=== PATIENT | female | born 1995 | race Caucasian/White ===

== ENCOUNTER 2019-06-08 16:17 | Emergency (ER) | payer BC, MEDICAID ==
--- NOTE | 2019-06-08 16:30 | EDM.PDOC ---
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 This developed yesterday and into today it is a little spectroscopist than a normal period for her. She denies fevers or chills. She has minimal cramping and discomfort with this. She does not have a history of PID or other infections. She is not having any nausea vomiting diarrhea or constipation. Denies burning or frequency with urination. She is established with Dr. Hurtado here in [facility]. - Related Data Allergies Allergy/AdvReac Type Severity Reaction Status Date / Time No Known Allergies Allergy Verified 06/08/19 16:24 Home Meds: Home Meds Pnv No.95/Ferrous Fum/Folic AC [ Vitamin Tablet] 1 tab PO DAILY [History] ED ROS GENERAL - Review of Systems Review Of Systems: See Below Constitutional: Reports: No Symptoms HEENT: Reports: No Symptoms Respiratory: Reports: No Symptoms Cardiovascular: Reports: No Symptoms Endocrine: Reports: No Symptoms GI/Abdominal: Reports: No Symptoms : Reports: No Symptoms Musculoskeletal: Reports: No Symptoms Skin: Reports: No Symptoms Neurological: Reports: No Symptoms ED EXAM - Physical Exam Exam: See Below Exam Limited By: No Limitations General Appearance: Alert, No Apparent Distress Head: Atraumatic, Normocephalic Neck: Normal Inspection, Supple, Non-Tender, Full Range of Motion Respiratory/Chest: No Respiratory Distress, Lungs Clear, Normal Breath Sounds Cardiovascular: Regular Rate, Rhythm, No Edema, No Murmur GI/Abdominal Exam: Normal Bowel Sounds, Soft, Other (Minimal suprapubic discomfort) (Female) Exam: Normal Bimanual Exam, Normal External Exam, Normal Speculum Exam, Vaginal Bleeding (Minimal had to use a large Q-tip to be able to see the blood against a white background. No tissue noted no clots noted) Back Exam: Normal Inspection. No: CVA Tenderness (L), CVA Tenderness (R) Extremities: Normal Inspection Course - Vital Signs Last Recorded V/S: Last Vital Signs Temp 36.4 C 06/08/19 16:26 Pulse 86 06/08/19 16:26 Resp BP 116/67 06/08/19 16:26 Pulse Ox 100 06/08/19 16:26 - Orders/Labs/Meds Orders: Active Orders 24 hr Category Date Time Status CULTURE URINE [RM] Stat Lab 06/08/19 16:42 Received RH IMMUNE GLOBULIN [BBK] Stat Lab 06/08/19 17:07 Results RHIG WORKUP, 1ST TRIMESTER [BBK] Stat Lab 06/08/19 17:07 Results TYPE AND SCREEN [BBK] Stat Lab 06/08/19 17:07 Results Labs: Laboratory Tests 06/08/19 06/08/19 06/08/19 Range/Units 16:42 17:07 17:07 WBC 9.91 (3.98-10.04) K/mm3 RBC 4.66 (3.98-5.22) M/mm3 Hgb 13.5 (11.2-15.7) gm/dl Hct 40.8 (34.1-44.9) % MCV 87.6 (79.4-94.8) fl MCH 29.0 (25.6-32.2) pg MCHC 33.1 (32.2-35.5) g/dl RDW Std Deviation 39.6 (36.4-46.3) fL Plt Count 314 (182-369) K/mm3 MPV 9.9 (9.4-12.3) fl Neut % (Auto) 69.6 (34.0-71.1) % Lymph % (Auto) 22.1 (19.3-51.7) % [place] % (Auto) 6.2 (4.7-12.5) % Eos % (Auto) 1.5 (0.7-5.8) Baso % (Auto) 0.5 (0.1-1.2) % Neut # (Auto) 6.90 H (1.56-6.13) K/mm3 Lymph # (Auto) 2.19 (1.18-3.74) K/mm3 [place] # (Auto) 0.61 H (0.24-0.36) K/mm3 Eos # (Auto) 0.15 (0.04-0.36) K/mm3 Baso # (Auto) 0.05 (0.01-0.08) K/mm3 HCG, Quant 57102.0 mIU/mL Urine Color Yellow (Yellow) Urine Appearance Clear (Clear) Urine pH 6.0 (5.0-8.0) Ur Specific [place] 1.015 (1.005-1.030) Urine Protein Negative (Negative) Urine Glucose (UA) Negative (Negative) Urine Ketones Negative (Negative) Urine Occult Blood 2+ H (Negative) Urine Nitrite Negative (Negative) Urine Bilirubin Negative (Negative) Urine Urobilinogen 0.2 (0.2-1.0) Ur Leukocyte Esterase 1+ H (Negative) Urine RBC 5-10 H (0-5) /hpf Urine WBC 0-5 (0-5) /hpf Ur Squamous Epith Cells 5-10 H (0-5) /hpf Urine Bacteria Few (FEW) /hpf Urine Mucus Not seen (FEW) /hpf Blood Type Gel Antibody Screen Rhogam Indicated 06/08/19 Range/Units 17:07 WBC (3.98-10.04) K/mm3 RBC (3.98-5.22) M/mm3 Hgb (11.2-15.7) gm/dl Hct (34.1-44.9) % MCV (79.4-94.8) fl MCH (25.6-32.2) pg MCHC (32.2-35.5) g/dl RDW Std Deviation (36.4-46.3) fL Plt Count (182-369) K/mm3 MPV (9.4-12.3) fl Neut % (Auto) (34.0-71.1) % Lymph % (Auto) (19.3-51.7) % [place] % (Auto) (4.7-12.5) % Eos % (Auto) (0.7-5.8) Baso % (Auto) (0.1-1.2) % Neut # (Auto) (1.56-6.13) K/mm3 Lymph # (Auto) (1.18-3.74) K/mm3 [place] # (Auto) (0.24-0.36) K/mm3 Eos # (Auto) (0.04-0.36) K/mm3 Baso # (Auto) (0.01-0.08) K/mm3 HCG, Quant mIU/mL Urine Color (Yellow) Urine Appearance (Clear) Urine pH (5.0-8.0) Ur Specific [place] (1.005-1.030) Urine Protein (Negative) Urine Glucose (UA) (Negative) Urine Ketones (Negative) Urine Occult Blood (Negative) Urine Nitrite (Negative) Urine Bilirubin (Negative) Urine Urobilinogen (0.2-1.0) Ur Leukocyte Esterase (Negative) Urine RBC (0-5) /hpf Urine WBC (0-5) /hpf Ur Squamous Epith Cells (0-5) /hpf Urine Bacteria (FEW) /hpf Urine Mucus (FEW) /hpf Blood Type O NEGATIVE Gel Antibody Screen Negative Rhogam Indicated Yes - Re-Assessments/Exams Free Text/Narrative Re-Assessment/Exam: 06/08/19 18:45 Blood type is O- she will receive RhoGam. Case discussed with Dr. Villarreal Departure - Departure Time of Disposition: 18:13 Disposition: Home, Self-Care 01 Clinical Impression: Threatened - Discharge Information Referrals: Tati Ling MD [Primary Care Provider] - Forms: ED Department Discharge, ED Return to Work/School Form Additional Instructions: Return to the emergency room with any worsening symptoms or concerns questions or problems. Follow-up with Dr. Hurtado on Monday you will need a repeat quantitative hCG. Call them first thing Monday morning. Mostly bedrest between now and the time you follow-up with Dr. Hurtado. No lifting, nothing in the vagina. Sepsis Event Note - Focused Exam Vital Signs: Vital Signs Temp Pulse BP Pulse Ox 06/08/19 16:26 36.4 C 86 116/67 100 Date Exam was Performed: 06/08/19 Time Exam was Performed: 18:44 - My Orders Last 24 Hours: My Active Orders 06/08/19 16:42 CULTURE URINE [RM] Stat 06/08/19 17:07 RH IMMUNE GLOBULIN [BBK] Stat RHIG WORKUP, 1ST TRIMESTER [BBK] Stat TYPE AND SCREEN [BBK] Stat - Assessment/Plan Last 24 Hours: My Active Orders 06/08/19 16:42 CULTURE URINE [RM] Stat 06/08/19 17:07 RH IMMUNE GLOBULIN [BBK] Stat RHIG WORKUP, 1ST TRIMESTER [BBK] Stat TYPE AND SCREEN [BBK] Stat
== END 2019-06-08 18:57 | disposition home or self-care (01) ==
LOC: JD.ED 16:17
DX: O20.0 Threatened abortion (principal); Z3A.08 8 weeks gestation of pregnancy
CPT/HCPCS: 36415; 81001; 84702; 85025; 86850; 86900; 86901; 87086; 87088; 87186; 99284; J2790; 99282

== ENCOUNTER 2020-03-28 10:35 | Emergency (ER) | payer OTHER, BC ==
[2020-03-28] MEDS ORDERED: Cyclobenzaprine 10 MG Tab PO ONE (11:25)
--- NOTE | 2020-03-28 12:02 | EDM.PDOC ---
ED HPI GENERAL MEDICAL PROBLEM - General Chief Complaint: Back Pain or Injury Stated Complaint: BACK INJURY Time Seen by Provider: 03/28/20 10:45 Source of Information: Reports: Patient History Limitations: Reports: No Limitations - History of Present Illness INITIAL COMMENTS - FREE TEXT/NARRATIVE: The patient presents with low back pain. She was at work this morning and lifte d a crate of bananas and hurt her low back. The pain is more in the middle but she has some to the right side of her back. She has no numbness or weakness. She has no bowel or bladder problems. She has no history of back pain. She has no fever, chills, cough, congestion, runny nose, chest pain, abdominal pain, nausea or vomiting. 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, Cold Therapy Lower Back Pain Score (Numeric/FACES): 4 - Related Data Allergies Allergy/AdvReac Type Severity Reaction Status Date / Time No Known Allergies Allergy Verified 03/28/20 10:47 Home Meds: Home Meds Pnv No.95/Ferrous Fum/Folic AC [ Vitamin Tablet] 1 tab PO DAILY 06/08/19 [History] Cyclobenzaprine [Flexeril] 10 mg PO TID PRN #20 tab 03/28/20 [Rx] Hydrocodone/Acetaminophen [Hydrocodone-Acetamin 5-325 mg] 1 - 2 each PO Q6HR PRN #10 tablet 03/28/20 [Rx] Past Medical History - Past Health History Medical/Surgical History: Denies Medical/Surgical History Genitourinary History: Reports: Other (See Below) Other Genitourinary History: Mirena IUD - Past Surgical History Female Surgical History: Reports: D&C Social & Family History - Tobacco Use Tobacco Use Status *Q: Current Some Day Tobacco User Years of Tobacco use: 4 Packs/Tins Daily: 0 - Caffeine Use Caffeine Use: Reports: None - Recreational Drug Use Recreational Drug Use: No ED ROS GENERAL - Review of Systems Review Of Systems: See Below Constitutional: Reports: No Symptoms HEENT: Reports: No Symptoms Respiratory: Reports: No Symptoms Cardiovascular: Reports: No Symptoms Endocrine: Reports: No Symptoms GI/Abdominal: Reports: No Symptoms : Reports: No Symptoms Musculoskeletal: Reports: Back Pain (low) ED EXAM,LOWER BACK PAIN/INJURY - Physical Exam Exam: See Below Exam Limited By: No Limitations General Appearance: Alert, No Apparent Distress Ears: Normal External Exam Nose: Normal Inspection Head: Atraumatic, Normocephalic Neck: Normal Inspection Respiratory/Chest: No Respiratory Distress, Lungs Clear, Normal Breath Sounds Cardiovascular: Regular Rate, Rhythm, No Edema, No Murmur GI/Abdominal: Soft, Non-Tender, No Organomegaly, No Mass Back Exam: Paraspinal Tenderness (mild to the mid and right low back) Neurological: Alert, No Motor/Sensory Deficits, Oriented x 3 Course - Vital Signs Last Recorded V/S: Last Vital Signs Temp 96.9 F 03/28/20 10:40 Pulse 79 03/28/20 10:40 Resp 16 03/28/20 10:40 BP 115/74 03/28/20 10:40 Pulse Ox 98 03/28/20 10:40 - Orders/Labs/Meds Orders: Active Orders 24 hr Category Date Time Status Lumbar Spine 2 or 3V [CR] Stat Exams 03/28/20 11:25 Taken Meds: Medications Discontinued Medications Generic Name Dose Route Start Last Admin Trade Name Errol PRN Reason Stop Dose Admin Cyclobenzaprine HCl 10 mg 03/28/20 11:25 03/28/20 11:37 Flexeril PO 03/28/20 11:26 10 mg ONETIME ONE Administration - Re-Assessments/Exams Free Text/Narrative Re-Assessment/Exam: 03/28/20 12:01 I ordered flexeril 10mg by mouth and an x-ray. The x-ray looks good. I will get her on some flexeril and antiinflammatories and something more for pain and refer to PT. Departure - Departure Time of Disposition: 12:15 Disposition: Home, Self-Care 01 Condition: Good Clinical Impression: Low back pain Qualifiers: Chronicity: acute Back pain laterality: bilateral Sciatica presence: without sciatica Qualified Code(s): M54.5 - Low back pain - Discharge Information *PRESCRIPTION DRUG MONITORING PROGRAM REVIEWED*: Not Applicable *COPY OF PRESCRIPTION DRUG MONITORING REPORT IN PATIENT AASHISH: Not Applicable Prescriptions: Cyclobenzaprine [Flexeril] 10 mg PO TID PRN #20 tab PRN Reason: Pain Hydrocodone/Acetaminophen [Hydrocodone-Acetamin 5-325 mg] 1 - 2 each PO Q6HR PRN #10 tablet PRN Reason: Pain Referrals: PCP,None [Primary Care Provider] - Kathleen De La Rosa MD [Physician] - 1 Week Forms: ED Department Discharge Additional Instructions: Ice your back for 15 minutes 3 times per day for 3 days. Take motrin or aleve for the pain. Take the flexeril every 8 hours as needed for pain. If these medications do not help, try the hydrocodone. Follow up with Dr De La Rosa within a week and follow up with physical therapy. Sepsis Event Note (ED) - Evaluation Sepsis Screening Result: No Definite Risk - Focused Exam Vital Signs: Vital Signs Temp Pulse Resp BP Pulse Ox 03/28/20 10:40 96.9 F 79 16 115/74 98 - My Orders Last 24 Hours: My Active Orders 03/28/20 11:25 Lumbar Spine 2 or 3V [CR] Stat - Assessment/Plan Last 24 Hours: My Active Orders 03/28/20 11:25 Lumbar Spine 2 or 3V [CR] Stat
--- NOTE | 2020-03-29 08:48 | CR ---
Lumbar spine: AP, lateral and coned-down lateral centered to the lumbosacral junction were obtained. Comparison: No previous study. Vertebral body heights and disc spaces are maintained. Pedicles are intact. Visualized transverse and spinous processes are intact. IUD is noted within the pelvis. Sacroiliac joints appear normal. Impression: 1. IUD. 2. 3 view lumbar spine study is otherwise unremarkable. Diagnostic code #1
== END 2020-03-28 12:35 | disposition home or self-care (01) ==
LOC: JD.ED 10:35
DX: M54.5 Low back pain (principal); Z72.0 Tobacco use
CPT/HCPCS: 72100; 99283; A9270

== ENCOUNTER 2021-10-28 00:18 | Inpatient (IN) | payer BC ==
[2021-10-28] MEDS ORDERED: Ondansetron 4 MG/2 ML SDV IVPUSH PRN (01:09)
[2021-10-28] MEDS ORDERED: Sodium Chloride 0.9% 10 ML Syringe FLUSH PRN (01:09)
[2021-10-28] MEDS ORDERED: Nalbuphine HCl 10 MG/ 1ML Amp IVPUSH PRN (01:09)
[2021-10-28] MEDS ORDERED: Calcium Carbonate 500 MG Tab.Chew PO PRN (01:09)
[2021-10-28] MEDS ORDERED: Oxytocin/Lactated Ringers 10 UNIT/1,000 ML BAG IV SCH ×2 (01:15)
[2021-10-28] MEDS ORDERED: diphenhydrAMINE 50 MG/ML SDV IVPUSH PRN (01:23)
[2021-10-28] MEDS ORDERED: Bupivacaine/fentaNYL/NS 100 ML Bag EPIDUR PRN (01:23)
[2021-10-28] MEDS ORDERED: ePHEDrine 50 MG/ML SDV IVPUSH PRN (01:23)
[2021-10-28] MEDS ORDERED: fentaNYL 100 MCG/2 ML SDV EPIDUR PRN (01:23)
[2021-10-28] MEDS: Lactated Ringers 1,000 ML IV SCH ×3 (01:32→06:28)
[2021-10-28] MEDS ORDERED: Bupivacaine 0.25% 10 ML SDV ONE (08:00)
[2021-10-28] MEDS ORDERED: Ibuprofen 600 MG Tab PO PRN (11:28)
[2021-10-28] MEDS ORDERED: Benzocaine/Menthol 20%-0.5% Spray 78 GM Cannister TOP PRN (11:28)
[2021-10-28] MEDS ORDERED: Witch Hazel Medicated Pads 40/Jar TOP PRN (11:28)
== END 2021-10-30 11:10 | disposition home or self-care (01) | DRG 560 ==
LOC: JD.OBCHECK 00:18 → JD.OB 00:23 → JD.OBCHECK 01:08 → JD.OB 01:09 → OBSVTOIN 10:42 → JD.OB 15:32
PROVIDERS: ADMIT Obstetrics & Gynecology; ATTEND Obstetrics & Gynecology
PROC: 10E0XZZ Delivery of Products of Conception, External Approach (ICD-10-PCS; principal; 2021-10-28)
PROC: 10907ZC Drainage of Amniotic Fluid, Therapeutic from Products of Conception, Via Natural or Artificial Opening (ICD-10-PCS; 2021-10-28)
PROC: 3E0R3BZ Introduction of Anesthetic Agent into Spinal Canal, Percutaneous Approach (ICD-10-PCS; 2021-10-28)
PROC: 00HU33Z Insertion of Infusion Device into Spinal Canal, Percutaneous Approach (ICD-10-PCS; 2021-10-28)
DX: O70.1 Second degree perineal laceration during delivery (principal); Z3A.39 39 weeks gestation of pregnancy; Z37.0 Single live birth
CPT/HCPCS: 01967; 36415; 51702; 59025; 59409; 84112; 85025; 86592; 86850; 86900; 86901; J2590; J3010; J3490; J7120

== ENCOUNTER 2023-09-29 10:15 | Inpatient (IN) | payer BC ==
[~2023-09-29 10:15] MED LIST: Bupivacaine 0.25% 10 ML SDV ONE
[2023-09-29] MEDS ORDERED: Calcium Carbonate 500 MG Tab.Chew PO PRN (10:53)
[2023-09-29] MEDS ORDERED: Lidocaine 1% 50 ML MDV INJECT PRN (10:53)
[2023-09-29] MEDS ORDERED: Nalbuphine 10 MG/ML Syringe IVPUSH PRN (10:53)
[2023-09-29] MEDS ORDERED: Oxytocin/0.9 % Sodium Chloride 30 UNIT/500 ML BAG IV SCH (11:00)
[2023-09-29] MEDS: Lactated Ringers 1,000 ML IV SCH (11:02)
[2023-09-29] MEDS ORDERED: Nalbuphine 10 MG/1 ML Vial IVPUSH PRN (11:02)
[2023-09-29 11:22] LABS: BASOPHILS ABSOLUTE AUTO 0.1 K/mm3 (0.0-0.2); BASOPHILS PERCENT AUTO 0.5 % (0.0-1.0); EOSINOPHILS ABSOLUTE AUTO 0.1 K/mm3 (0.0-0.4); EOSINOPHILS PERCENT AUTO 0.6 % (0.0-6.0); HEMATOCRIT 36.9 % (37.0-47.0); HEMOGLOBIN 11.4 gm/dl (12.0-16.0); IMMATURE GRAN ABSOLUTE AUTO 0.03 K/mm3 (0.00-0.05); IMMATURE GRAN PERCENT AUTO 0.3 % (0.0-0.4); LYMPHOCYTES ABSOLUTE AUTO 1.7 K/mm3 (1.0-4.8); LYMPHOCYTES PERCENT AUTO 17.8 % (24.0-44.0); MEAN CORPUSCULAR HEMOGLOBIN 24.4 pg (28.0-32.0); MEAN CORPUSCULAR HGB CONC 30.9 g/dl (32.0-36.0); MEAN PLATELET VOLUME 10.7 fl (9.4-12.3); MONOCYTES ABSOLUTE AUTO 0.6 K/mm3 (0.0-0.8); MONOCYTES PERCENT AUTO 6.4 % (0.0-8.0); NEUTROPHILS PERCENT AUTO 74.4 % (41.0-71.0); PLATELET COUNT,PLT 303 K/mm3 (150-400); RED BLOOD CELL COUNT 4.67 M/mm3 (4.10-5.30); WHITE BLOOD CELL COUNT,WBC 9.39 K/mm3 (3.9-11.3)
[2023-09-29] MEDS ORDERED: diphenhydrAMINE 50 MG/ML SDV IVPUSH PRN (11:25)
[2023-09-29] MEDS ORDERED: ePHEDrine 50 MG/ML SDV IVPUSH PRN (11:25)
[2023-09-29] MEDS: fentaNYL 100 MCG/2 ML SDV EPIDUR PRN (11:42)
[2023-09-29] MEDS: Bupivacaine/fentaNYL/NS 100 ML Bag EPIDUR PRN (11:43)
[2023-09-29] MEDS: Oxytocin/0.9 % Sodium Chloride 30 UNIT/500 ML BAG IV SCH (15:04)
[2023-09-29] MEDS ORDERED: Docusate Sodium 100 MG Cap PO PRN (16:57)
[2023-09-29] MEDS ORDERED: Acetaminophen 325 MG Tab PO PRN (16:57)
[2023-09-29] MEDS: Benzocaine/Menthol 20%-0.5% Spray 78 GM Cannister TOP PRN (17:05)
[2023-09-29] MEDS: Witch Hazel Medicated Pads 40/Jar TOP PRN (17:06)
[2023-09-29] MEDS: Ibuprofen 600 MG Tab PO SCH (18:52)
== END 2023-09-30 17:23 | disposition home or self-care (01) | DRG 560 ==
LOC: JD.OBCHECK 10:15 → JD.OB 10:15 → JD.OBCHECK 10:52 → JD.OB 10:53 → OBSVTOIN 15:18 → JD.OB 15:19
PROVIDERS: ADMIT Obstetrics & Gynecology; ATTEND Obstetrics & Gynecology
PROC: 10E0XZZ Delivery of Products of Conception, External Approach (ICD-10-PCS; principal; 2023-09-29)
PROC: 0HQ9XZZ Repair Perineum Skin, External Approach (ICD-10-PCS; 2023-09-29)
PROC: 3E0R3BZ Introduction of Anesthetic Agent into Spinal Canal, Percutaneous Approach (ICD-10-PCS; 2023-09-29)
PROC: 00HU33Z Insertion of Infusion Device into Spinal Canal, Percutaneous Approach (ICD-10-PCS; 2023-09-29)
DX: O48.0 Post-term pregnancy (principal); Z37.0 Single live birth; Z3A.40 40 weeks gestation of pregnancy; O70.0 First degree perineal laceration during delivery; O69.81X0 Labor and delivery complicated by cord around neck, without compression, not applicable or unspecified; O77.0 Labor and delivery complicated by meconium in amniotic fluid
CPT/HCPCS: 36415; 36430; 51701; 59025; 59409; 85025; 85461; 86592; 86850; 86900; 86901; A9270-GY; C1758; J0665; J2790; J3010; J3490; J7120; J7999

== ENCOUNTER 2024-12-20 10:33 | Emergency (ER) | payer BC ==
[2024-12-20] MEDS ORDERED: Sodium Chloride 0.9% 10 ML Syringe FLUSH PRN (11:03)
[2024-12-20 11:27] LABS: BASOPHILS ABSOLUTE AUTO 0.1 K/mm3 (0.0-0.2); BASOPHILS PERCENT AUTO 0.8 % (0.0-1.0); EOSINOPHILS ABSOLUTE AUTO 0.1 K/mm3 (0.0-0.4); EOSINOPHILS PERCENT AUTO 1.4 % (0.0-6.0); IMMATURE GRAN ABSOLUTE AUTO 0.02 K/mm3 (0.00-0.05); IMMATURE GRAN PERCENT AUTO 0.3 % (0.0-0.4); LYMPHOCYTES ABSOLUTE AUTO 2.0 K/mm3 (1.0-4.8); LYMPHOCYTES PERCENT AUTO 25.6 % (24.0-44.0); MEAN PLATELET VOLUME 9.9 fl (9.4-12.3); MONOCYTES ABSOLUTE AUTO 0.4 K/mm3 (0.0-0.8); MONOCYTES PERCENT AUTO 5.0 % (0.0-8.0); NEUTROPHILS ABSOLUTE AUTO 5.3 K/mm3 (1.8-7.7); NEUTROPHILS PERCENT AUTO 66.9 % (41.0-71.0); NRBC ABSOLUTE 0.00 (0.00-0.02); NRBC PERCENT 0.0 % (0.0-0.2); PLATELET COUNT,PLT 334 K/mm3 (150-400); RED BLOOD CELL COUNT 4.97 M/mm3 (4.10-5.30); WHITE BLOOD CELL COUNT,WBC 7.93 K/mm3 (3.9-11.3)
[2024-12-20 11:28] LABS: APPEARANCE,URINE CLEAR (Clear); GLUCOSE,URINE NEGATIVE (Negative); OCCULT BLOOD,URINE 2+ (Negative)
[2024-12-20 11:49] LABS: A/G RATIO 0.9 (1-2); ALANINE AMINOTRANSFERASE,ALT 24.0 U/L (14-59); ASPARTATE AMNIOTRANSFERASE,AST 14.0 U/L (15-37); BILIRUBIN TOTAL 0.3 mg/dL (0.2-1.0); BLOOD UREA NITROGEN,BUN 9.0 mg/dL (7-18); CARBON DIOXIDE,CO2 26.0 mEq/L (21-32); CHLORIDE,CL 106.0 mEq/L (98-107); CREATININE 0.7 mg/dL (0.55-1.02); EST CRCL DRUG DOSING (CG) 114.28 mL/min; ESTIMATED GFR 119.0 mL/min (>60); GLUCOSE RANDOM 85.0 mg/dL (70-99); HCG QUANTITATIVE 685.0 mIU/mL; POTASSIUM,K 3.6 mEq/L (3.5-5.1); PROTEIN TOTAL,TP 7.5 g/dl (6.4-8.2); SODIUM,NA 139.0 mEq/L (136-145)
== END 2024-12-20 14:15 | disposition home or self-care (01) ==
LOC: JD.ED 10:33
DX: O20.0 Threatened abortion (principal); N93.9 Abnormal uterine and vaginal bleeding, unspecified; Z88.8 Allergy status to other drugs, medicaments and biological substances; Z86.16 Personal history of COVID-19
CPT/HCPCS: 36415; 76817; 76817-26; 80053; 81001; 84702; 85025; 87086; 99284

== ENCOUNTER 2024-12-22 11:41 | Emergency (ER) | payer BC ==
[2024-12-22 11:59] LABS: BASOPHILS ABSOLUTE AUTO 0.1 K/mm3 (0.0-0.2); BASOPHILS PERCENT AUTO 0.7 % (0.0-1.0); EOSINOPHILS ABSOLUTE AUTO 0.2 K/mm3 (0.0-0.4); EOSINOPHILS PERCENT AUTO 1.6 % (0.0-6.0); IMMATURE GRAN ABSOLUTE AUTO 0.02 K/mm3 (0.00-0.05); IMMATURE GRAN PERCENT AUTO 0.2 % (0.0-0.4); LYMPHOCYTES ABSOLUTE AUTO 2.8 K/mm3 (1.0-4.8); LYMPHOCYTES PERCENT AUTO 27.5 % (24.0-44.0); MEAN PLATELET VOLUME 9.6 fl (9.4-12.3); MONOCYTES ABSOLUTE AUTO 0.8 K/mm3 (0.0-0.8); MONOCYTES PERCENT AUTO 7.6 % (0.0-8.0); NEUTROPHILS ABSOLUTE AUTO 6.4 K/mm3 (1.8-7.7); NEUTROPHILS PERCENT AUTO 62.4 % (41.0-71.0); NRBC ABSOLUTE 0.00 (0.00-0.02); NRBC PERCENT 0.0 % (0.0-0.2); PLATELET COUNT,PLT 404 K/mm3 (150-400); RED BLOOD CELL COUNT 5.30 M/mm3 (4.10-5.30); WHITE BLOOD CELL COUNT,WBC 10.26 K/mm3 (3.9-11.3)
[2024-12-22 12:36] LABS: A/G RATIO 0.9 (1-2); ALANINE AMINOTRANSFERASE,ALT 21.0 U/L (14-59); ASPARTATE AMNIOTRANSFERASE,AST 13.0 U/L (15-37); BILIRUBIN TOTAL 0.3 mg/dL (0.2-1.0); BLOOD UREA NITROGEN,BUN 13.0 mg/dL (7-18); CARBON DIOXIDE,CO2 26.0 mEq/L (21-32); CHLORIDE,CL 104.0 mEq/L (98-107); CREATININE 0.8 mg/dL (0.55-1.02); EST CRCL DRUG DOSING (CG) 99.99 mL/min; ESTIMATED GFR 102.0 mL/min (>60); GLUCOSE RANDOM 89.0 mg/dL (70-99); HCG QUANTITATIVE 719.0 mIU/mL; POTASSIUM,K 4.0 mEq/L (3.5-5.1); PROTEIN TOTAL,TP 8.2 g/dl (6.4-8.2); SODIUM,NA 141.0 mEq/L (136-145)
== END 2024-12-22 14:15 | disposition home or self-care (01) ==
LOC: JD.ED 11:41
DX: O20.9 Hemorrhage in early pregnancy, unspecified (principal); Z88.8 Allergy status to other drugs, medicaments and biological substances; Z79.899 Other long term (current) drug therapy; Z86.16 Personal history of COVID-19; Z3A.00 Weeks of gestation of pregnancy not specified
CPT/HCPCS: 36415; 76817; 76817-26; 80053; 84702; 85025; 99284